=== PATIENT | male | born 1970 | race Caucasian/White ===

== ENCOUNTER 2018-08-13 21:38 | Emergency (ER) | payer MEDICAID ==
[2018-08-13] MEDS ORDERED: Sodium Chloride 0.9% 10 ML Syringe FLUSH PRN (22:17)
--- NOTE | 2018-08-13 22:25 | EDM.PDOC ---
ED HPI GENERAL MEDICAL PROBLEM - General Chief Complaint: Headache Stated Complaint: migraine Time Seen by Provider: 08/13/18 22:05 Source of Information: Reports: Patient, Significant Other History Limitations: Reports: No Limitations - History of Present Illness INITIAL COMMENTS - FREE TEXT/NARRATIVE: Patient comes to ER with complaint of migraine headache. Has been here previously for same complaint. All over headache, runs down neck and into both shoulders. 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 Has had the headache since then. Today is day 5. Has photophobia, nausea, emesis. Not eating. Some loose stools which he attributes to stress. No fevers/chills or other symptoms suggesting infection. Todays headache is worse than his usual migraines. Very stressed since of his dog. Has PTSD. Smokes. Has gotten of his chronic narcotics that he was on last summer when he was last seen for a migraine. Reports that he has bad disc in his neck that contributes to his headaches. Tells us "he just wants his headache to go away", and says that he usually gets good relief with 8mg Decadron/60mg Toradol/4mg Zofran IM. Was seen at clinic two days ago and received his shots but headache did not completely resolve and returned. Denies any acute changes in presentation of headache. Denies neuro changes/auras. No other complaints at this time. 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: Reports: Acetaminophen Right Headache Pain Score (Numeric/FACES): 10 - Related Data Allergies Allergy/AdvReac Type Severity Reaction Status Date / Time Bleach (Sodium Hypochlorite) Allergy Rash Verified 08/13/18 21:44 codeine Allergy Cannot Verified 08/13/18 21:44 Remember Penicillins Allergy Rash Verified 08/13/18 21:44 Home Meds: Home Meds Acetaminophen [Tylenol Extra Strength] 1,000 mg PO Q6H PRN 02/02/17 [History] traZODone HCl [Trazodone HCl] 100 mg PO BEDTIME 02/02/17 [History] Venlafaxine [Effexor XR] 150 mg PO QAM 10/24/17 [History] Past Medical History HEENT History: Reports: Impaired Vision, Other (See Below) Other HEENT History: He wears glasses. Musculoskeletal History: Reports: Arthritis, Back Pain, Chronic, Neck Pain, Chronic, Osteoarthritis Neurological History: Reports: Brain Injury, Concussion, Headaches, Chronic, Head Trauma, Migraines, Neuropathy, Peripheral Psychiatric History: Reports: ADD, ADHD, Addiction, Anxiety, Bipolar, Depression , Schizophrenia, Other (See Below) Other Psychiatric History: Chronic narcotic use. Previous history of alcohol abuse for at least 10 years with no use since about 2012 - Past Surgical History HEENT Surgical History: Reports: Naso-Sinus Surgery Neurological Surgical History: Reports: Discectomy, Laminectomy, Lumbar Spine, Spinal Fusion, Other (See Below) Other Neurological Surgeries/Procedures: Initial discectomy of L5 in 2014 with subsequent additional discectomies in the lumbar region 2 and concomitant spinal fusion/bernadine placement in 2016. Musculoskeletal Surgical History: Reports: ORIF, Other (See Below) Other Musculoskeletal Surgeries/Procedures:: The patient's denies previous wrist surgery by our medical records. Apparent to previous left canvas cutter hand surgeries 2 last in 2002 with additional right fifth finger surgery also in 2002 with all surgeries unsuccessful. Social & Family History - Tobacco Use Smoking Status *Q: Current Every Day Smoker Smoking Cessation Information Provided To Patient: Patient Refused - Alcohol Use Alcohol Use History: No - Recreational Drug Use Recreational Drug Type: Reports: Marijuana/Hashish - Living Situation & Occupation Living situation: Reports: , with Family ( and granddaughter) Occupation: Disabled (Secondary to emotional status and his osteoarthritis) ED ROS GENERAL - Review of Systems Review Of Systems: See Below Constitutional: Reports: Decreased Appetite. Denies: Fever, Weakness, Night Sweats, Diaphoresis HEENT: Reports: No Symptoms. Denies: Vision Change Cardiovascular: Reports: No Symptoms GI/Abdominal: Reports: Diarrhea, Nausea, Vomiting. Denies: Abdominal Pain, Melena : Reports: No Symptoms Musculoskeletal: Reports: Neck Pain, Shoulder Pain, Muscle Pain. Denies: Muscle Stiffness Skin: Reports: No Symptoms Neurological: Reports: Headache. Denies: Confusion, Dizziness, Numbness, Paresthesia, Pre-Existing Deficit, Syncope, Tingling, Trouble Speaking, Difficulty Walking, Change in Speech, Gait Disturbance Psychiatric: Reports: Anxiety. Denies: Homicidal Ideation, Suicidal Ideation - Physical Exam Exam: See Below Exam Limited By: No Limitations General Appearance: Alert, WD/WN, Other (appears uncomfortable and stressed.) Eye Exam: Bilateral Eye: EOMI, PERRL Nose: No: Nasal Deformity, Nasal Swelling, Nasal Drainage Throat/Mouth: Normal Lips, Normal Voice, No Airway Compromise Head Exam: Atraumatic, Normocephalic Neck: Supple, Non-Tender, Full Range of Motion Respiratory/Chest: No Respiratory Distress, Lungs Clear, Normal Breath Sounds, No Accessory Muscle Use Cardiovascular: Regular Rate, Rhythm, No Murmur GI/Abdominal: Soft, Non-Tender (Male) Exam: Deferred Rectal (Males) Exam: Deferred Neuro Exam (Abbreviated): Alert, Oriented, CN II-XII Intact, Normal Cognition, Normal Gait, No Motor/Sensory Deficits Back Exam: No: CVA Tenderness (L), CVA Tenderness (R) Extremities: Normal Range of Motion Psychiatric: Flat Affect. No: Tearful Skin Exam: Warm, Dry, Intact, Normal Color Course - Vital Signs Last Recorded V/S: Last Vital Signs Temp 36.3 C 08/13/18 21:38 Pulse 85 08/13/18 21:38 Resp 20 08/13/18 21:38 BP 145/83 H 08/13/18 21:38 Pulse Ox 100 08/13/18 21:38 - Orders/Labs/Meds Meds: Medications Discontinued Medications Generic Name Dose Route Start Last Admin Trade Name Hueyq PRN Reason Stop Dose Admin Dexamethasone 8 mg 08/13/18 22:15 08/13/18 22:28 Dexamethasone IM 08/13/18 22:16 8 mg ONETIME ONE Administration Diazepam 5 mg 08/13/18 22:18 08/13/18 22:28 Valium. PO 08/13/18 22:19 5 mg ONETIME ONE Administration Lactated Ringer's 1,000 mls @ 999 mls/hr 08/13/18 22:16 08/13/18 22:32 Ringers, Lactated IV 08/13/18 23:16 999 mls/hr .BOLUS ONE Administration Ketorolac Tromethamine 30 mg 08/13/18 22:17 08/13/18 22:27 Toradol IVPUSH 08/13/18 22:18 30 mg ONETIME ONE Administration Magnesium Sulfate/Dextrose 1 gm 08/13/18 22:17 08/13/18 22:32 Magnesium 1 Gm In D5w 100 Ml IV 08/13/18 22:18 1 gm ONETIME ONE Administration Ondansetron HCl 4 mg 08/13/18 22:17 08/13/18 22:35 Zofran IVPUSH 08/13/18 22:18 4 mg ONETIME ONE Administration Sodium Chloride 10 ml 08/13/18 22:17 Saline Flush FLUSH ASDIRECTED PRN Keep Vein Open - Re-Assessments/Exams Free Text/Narrative Re-Assessment/Exam: 08/13/18 22:28 Patient agreeable with IV bolus. LR ordered. Also received Mg, Zofran, Toradol , Decadron. PO Valium given to patient. He does not recall having a baseline CT study of his head as part of his migraine workups in past, but refused having one performed tonight, saying he just wanted to go home. Plan is to let patient return home after bolus if he is feeling improved. Departure - Departure Time of Disposition: 23:30 Disposition: Home, Self-Care 01 Condition: Good Clinical Impression: Migraine headache without aura Qualifiers: Status migrainosus presence: with status migrainosus Intractability: not intractable Qualified Code(s): G43.001 - Migraine without aura, not intractable , with status migrainosus - Discharge Information *PRESCRIPTION DRUG MONITORING PROGRAM REVIEWED*: No *COPY OF PRESCRIPTION DRUG MONITORING REPORT IN PATIENT VIPUL: No Referrals: Avis Tom PA-C [Primary Care Provider] - Forms: ED Department Discharge Additional Instructions: Rest, stay hydrated. Follow up as needed if problems persist.
[2018-08-13] MEDS: Ketorolac 30 MG/ML SDV IVPUSH ONE (22:27)
[2018-08-13] MEDS: Diazepam 5 MG Tab PO ONE (22:28)
[2018-08-13] MEDS: Dexamethasone 10 MG/ML SDV IM ONE (22:28)
[2018-08-13] MEDS: Lactated Ringers 1,000 ML IV ONE (22:32)
[2018-08-13] MEDS: Ondansetron 4 MG/2 ML SDV IVPUSH ONE (22:35)
== END 2018-08-13 23:46 | disposition home or self-care (01) ==
LOC: LL.ED 21:38
DX: G43.001 Migraine without aura, not intractable, with status migrainosus (principal); F17.210 Nicotine dependence, cigarettes, uncomplicated; Z88.5 Allergy status to narcotic agent; Z88.0 Allergy status to penicillin
CPT/HCPCS: 96365; 96372; 96375; 99283; A9270; J1100; J1885; J2405; J3475; J7120

== ENCOUNTER 2018-08-17 14:02 | Emergency (ER) | payer MEDICAID ==
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
[2018-08-17] MEDS ORDERED: Sodium Chloride 0.9% 10 ML Syringe FLUSH PRN (14:18)
[2018-08-17] MEDS ORDERED: Ketorolac 30 MG/ML SDV IVPUSH ONE (14:19)
[2018-08-17] MEDS ORDERED: LORazepam 2 MG/ML SDV IVPUSH ONE (14:19)
== END 2018-08-17 15:35 | disposition home or self-care (01) ==
LOC: LL.ED 14:02
DX: M54.5 Low back pain (principal); F31.9 Bipolar disorder, unspecified; M19.90 Unspecified osteoarthritis, unspecified site; Z71.6 Tobacco abuse counseling; F17.210 Nicotine dependence, cigarettes, uncomplicated; F41.9 Anxiety disorder, unspecified; Z91.09 Other allergy status, other than to drugs and biological substances; Z79.899 Other long term (current) drug therapy; Z88.0 Allergy status to penicillin; Z88.5 Allergy status to narcotic agent; Z88.8 Allergy status to other drugs, medicaments and biological substances
CPT/HCPCS: 36000; 72100; 96374; 96375; 99283; J1885; J2060

== ENCOUNTER 2019-01-02 12:19 | Emergency (ER) | payer MEDICAID ==
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
[2019-01-02] MEDS: Bacitracin/Neomycin/Polymyxin B Oint 0.9 GM U/D Packet TOP ONE (12:43)
[2019-01-02] MEDS: Diphtheria,Pertussis(Acell),Tetanus Vaccine 0.5 ML SDV IM ONE (12:49)
== END 2019-01-02 13:10 | disposition home or self-care (01) ==
LOC: LL.ED 12:19
DX: S61.451A Open bite of right hand, initial encounter (principal); I11.0 Hypertensive heart disease with heart failure; I50.9 Heart failure, unspecified; I25.2 Old myocardial infarction; M15.0 Primary generalized (osteo)arthritis; F31.9 Bipolar disorder, unspecified; F17.210 Nicotine dependence, cigarettes, uncomplicated; Z88.0 Allergy status to penicillin; Z71.6 Tobacco abuse counseling; Z91.048 Other nonmedicinal substance allergy status; Z88.8 Allergy status to other drugs, medicaments and biological substances; Z23 Encounter for immunization; Z79.899 Other long term (current) drug therapy; W54.0XXA Bitten by dog, initial encounter
CPT/HCPCS: 90471; 90715; 96372; 99283

== ENCOUNTER 2019-02-12 16:47 | Emergency (ER) | payer MEDICAID ==
[2019-02-12] MEDS ORDERED: Sodium Chloride 0.9% 10 ML Syringe FLUSH PRN (17:20)
[2019-02-12] MEDS ORDERED: Sodium Chloride 0.9% 1,000 ML IV ONE (17:21)
[2019-02-12] MEDS ORDERED: Ondansetron 4 MG/2 ML SDV IVPUSH ONE (17:22)
[2019-02-12] MEDS ORDERED: SUMAtriptan 6 MG/0.5 ML SDV SUBCUT ONE ×2 (17:23→18:58)
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
== END 2019-02-12 19:23 | disposition home or self-care (01) ==
LOC: LL.ED 16:47
DX: G43.011 Migraine without aura, intractable, with status migrainosus (principal); F41.9 Anxiety disorder, unspecified; F32.9 Major depressive disorder, single episode, unspecified; F17.210 Nicotine dependence, cigarettes, uncomplicated; Z88.5 Allergy status to narcotic agent; Z91.09 Other allergy status, other than to drugs and biological substances; Z88.0 Allergy status to penicillin; Z88.8 Allergy status to other drugs, medicaments and biological substances; Z79.899 Other long term (current) drug therapy
CPT/HCPCS: 96361; 96372; 96374; 99283-25; J2405; J3030; J7030

== ENCOUNTER 2019-03-30 18:45 | Emergency (ER) | payer MEDICAID ==
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
[2019-03-30] MEDS ORDERED: Ketorolac 60 MG/2 ML SDV IM ONE (19:19)
== END 2019-03-30 19:40 | disposition home or self-care (01) ==
LOC: LL.ED 18:45
DX: K02.9 Dental caries, unspecified (principal); F31.9 Bipolar disorder, unspecified; M15.0 Primary generalized (osteo)arthritis; F41.9 Anxiety disorder, unspecified; F17.210 Nicotine dependence, cigarettes, uncomplicated; Z71.6 Tobacco abuse counseling; Z88.5 Allergy status to narcotic agent; Z88.0 Allergy status to penicillin; Z88.8 Allergy status to other drugs, medicaments and biological substances; Z79.899 Other long term (current) drug therapy
CPT/HCPCS: 96372; 99282-25; J1885

== ENCOUNTER 2019-06-08 18:14 | Emergency (ER) | payer MEDICAID ==
[2019-06-08] MEDS ORDERED: Meperidine PF 25 MG/ML SDV IM ONE (18:38)
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
[2019-06-08] MEDS ORDERED: Promethazine 25 MG/ML SDV IM ONE (18:39)
[2019-06-08] MEDS ORDERED: Meperidine PF 25 MG/ML Syringe ONE ×2 (18:56→19:02)
== END 2019-06-08 19:15 | disposition home or self-care (01) ==
LOC: LL.ED 18:14
DX: K02.9 Dental caries, unspecified (principal); F31.9 Bipolar disorder, unspecified; M19.90 Unspecified osteoarthritis, unspecified site; Z71.6 Tobacco abuse counseling; F17.210 Nicotine dependence, cigarettes, uncomplicated; Z91.048 Other nonmedicinal substance allergy status; Z88.0 Allergy status to penicillin; Z88.5 Allergy status to narcotic agent; Z88.8 Allergy status to other drugs, medicaments and biological substances
CPT/HCPCS: 96372; 99282; J2175; J2550